=== PATIENT | male | born 1960 | race African-American/Black ===

== ENCOUNTER 2016-08-05 12:02 | Emergency (ER) | payer MEDICARE, OTHER ==
[~2016-08-05 12:02] MED LIST: ALBU8.5H5 IH; HYDR-2086 PO; HYDR25CA PO; LOSA25TA5 PO; NAPR-260 PO; OXCA600T3 PO; SERT100T PO; TEMA15CA PO; TEMA30CA6 PO; TIOT18CA IH; TRAM50TA2 PO; TRIA1CAP56 PO
== END 2016-08-05 12:45 | disposition left against medical advice (07) ==
LOC: E/R 12:02 → FTE 12:45
DX: Z53.21 Procedure and treatment not carried out due to patient leaving prior to being seen by health care provider (principal)